=== PATIENT | female | born 1985 | race Caucasian/White ===

== ENCOUNTER → 2017-01-21 | Outpatient (CLI) | payer MEDICAID ==
[~2017-01-21] MED LIST: DCS100C PO; GLIP5TAB13 PO; HYDR-3454 PO; Ibuprofen PO; NAPR550T PO; PNT40TEC PO; PREN1TAB19 PO
== END ==
LOC: LAB 08:30
PROVIDERS: ATTEND Family Medicine
DX: Z86.32 Personal history of gestational diabetes (principal)
CPT/HCPCS: 36415; 82951; 82952; 82962

== ENCOUNTER → 2017-01-27 | Outpatient (CLI) | payer MEDICAID ==
--- NOTE | 2017-01-27 15:48 | Diagnostic Imaging Report ---
INDICATION: Evaluate anatomy. Dating. TECHNIQUE: Multiple real-time grayscale images were obtained over the gravid uterus. COMPARISON: None FINDINGS: There is a single intrauterine . The placenta is posterior. No placenta previa. Adequate amniotic fluid is seen. The cervix is 3.7 cm in length and is closed. The growth parameters are: Biparietal diameter: 16 weeks and 1 day Head circumference: 16 weeks and 6 days Abdominal circumference: 16 weeks and 2 days Femur length: 15 weeks and 6 days These average at: 16 weeks and 2 days. ROB based on the growth parameters is 07/12/2017. This is concordant with ROB by LMP of 07/11/2017. IMPRESSION: Live intrauterine . survey between 18-20 weeks is recommended. Dictated by: Dictated on workstation # [id number]
== END ==
LOC: RAD 10:03
PROVIDERS: ATTEND Family Medicine
DX: Z36 Encounter for antenatal screening of mother (principal); Z3A.16 16 weeks gestation of pregnancy
CPT/HCPCS: 76805

== ENCOUNTER → 2017-06-16 | Outpatient (CLI) | payer MEDICAID ==
--- NOTE | 2017-06-16 14:31 | Diagnostic Imaging Report ---
INDICATION: Maternal gestational diabetes. TECHNIQUE: Multiple real-time grayscale images were obtained over the gravid uterus. Fetus observed for purposes of biophysical profile assessment as well. COMPARISON: 01/27/2017 FINDINGS: There is presence of a single viable intrauterine currently in cephalic presentation. Lower limits amount of amniotic fluid with an index at 7.3 cm. Placenta posterior without evidence for previa. anatomical evaluation not performed. Biometrical measurements are as follows: Biparietal 9.0 cm, age 36 weeks 4 days. Head circumference 31.9 cm, age 36 weeks 0 days. Abdominal circumference 32.6 cm, age 36 weeks 4 days. Femur length 6.9 cm, age 35 weeks 3 days. Sonographic estimate age: 36 weeks 1 days. Sonographic estimated date of delivery: 07/13/17. Estimated Weight: 2866 gm (+/- 418 gm). LMP percentile: 49%. heart rate: 152 beats per minute. number: 1 of 1. Fetus observed for biophysical profile assessment demonstrating a normal biophysical profile scoring 8 out of 8. IMPRESSION: 1. Single viable intrauterine currently in a cephalic presentation. Sonographic estimated age 36 weeks 1 day for an estimated date of delivery 07/13/2017. Concordant with previous ultrasound dating. 2. Estimated weight currently at the 49th percentile. 3. Normal biophysical profile scoring 8 out of 8. Dictated by: Dictated on workstation # [id number]
== END ==
LOC: RAD 12:37
PROVIDERS: ATTEND Family Medicine
DX: O24.419 Gestational diabetes mellitus in pregnancy, unspecified control (principal); Z3A.36 36 weeks gestation of pregnancy
CPT/HCPCS: 76805; 76819

== ENCOUNTER 2017-06-25 17:17 | Inpatient (IN) | payer MEDICAID ==
[~2017-06-25] VITALS: Ht 152.4 cm; Wt 76.2 kg
[2017-06-25] VITALS (34 sets, daily range): BP systolic 91–135; BP diastolic 50–73
[~2017-06-25 17:17] MED LIST changes: -ACYC400T PO; -GLYB2.5T4 PO
--- OUTSIDE RECORDS SUMMARY | 2017-06-25 17:21 | XMS REPORT ---
Author Author IKE DAVIS Organization [employer] Address Unknown Phone Unavailable Care Team Providers Care Principal Technical Writer Name Role Phone IKE DAVIS CP Unavailable Allergies, Adverse Reactions, Alerts Substance Reaction Event Type N.K.D.A. Info Not Available Non Drug Allergy Problems Problem Type Condition Code Onset Dates Condition Status Problem Gestational diabetes 648.80 Active Assessment Yeast infection B37.9 Active Problem Need for rhogam due to Rh negative mother V07.2 Active Assessment Vaginal sore N89.8 Active Assessment Vaginal discharge N89.8 Active Medications Medication Code System Code Instructions Start Date End Date Status Dosage Acyclovir [facility] [place] [address]-67 400 MG Orally Three times a day January 15, 2016 1 tablet Doxycycline Monohydrate [facility] [place] [address]-80 100 MG Orally every 12 hrs January 15, 2016 Feb 05, 2016 1 capsule Procedures Procedure Coding System Code Date VENIPUNCT, ROUTINE* CPT-4 44814 January 15, 2016 Office Visit, Est Pt., Level 4 CPT-4 22520 January 15, 2016 GLYCATED HEMOGLOBIN TEST CPT-4 51948 January 15, 2016 DUNCAN VAG, DNA, DIR PROBE CPT-4 01517 January 15, 2016 URINALYSIS, AUTO, W/O SCOPE CPT-4 32822 January 15, 2016 HERPES SIMPLEX TEST CPT-4 02079 January 15, 2016 HERPES SIMPLEX TYPE 2 CPT-4 41260 January 15, 2016 URINE TEST CPT-4 29138 January 15, 2016 SPECIMEN HANDLING CPT-4 93968 January 15, 2016 TRICHOMONAS ASSAY W/OPTIC CPT-4 09416 January 15, 2016 KELLY VIRUS ISOLATE, HSV CPT-4 74700 January 15, 2016 No Charge CPT-4 11034 January 15, 2016 Vital Signs Date/Time: January 15, 2016 Cardiac Monitoring Heart Rate 84 bpm Weight 157.3 lbs Height 60 in Blood Pressure Diastolic 82 mmHg Blood Pressure Systolic 126 mmHg Results No Known Results Summary Purpose [employer] Submission
--- OUTSIDE RECORDS SUMMARY | 2017-06-25 17:21 | XMS REPORT | Continuity of Care Document ---
Author Author [facility] Address Unknown Phone Unavailable Allergies Active Description Code Type Severity Reaction Onset Reported/Identified Relationship to Patient Clinical Status Yes No Known Drug Allergies [id number] Drug Allergy Unknown N/A 07/06/2011 Medications There is no data. Problems Date Dx Coded Attending Type Code Diagnosis Diagnosed By 07/06/2011 Ot 836.2 TEAR MENISCUS NEC-CURREN 07/06/2011 Ot 959.7 LOWER LEG INJURY NOS 07/06/2011 Ot E000.8 OTHER EXTERNAL CAUSE STATUS 07/06/2011 Ot E849.0 ACCIDENT IN HOME 07/06/2011 Ot E927.0 OVEREXERTION FROM SUDDEN STRENUOUS MOVEM 12/08/2013 KATTY JONESNEFTALY Rodriguez A V06.1 TDAP DX 12/08/2013 KATTY JONESMichael NEFTALY A V22.1 , NORMAL OTHER 12/08/2013 KATTY TALENT MANAGER, NEFTALY A V74.5 STD SCREEN 12/08/2013 KATTY TALENT MANAGER, NEFTALY A V76.2 CERVICAL CANCER SCREENING (PAP SMEAR) 12/08/2013 KATTY TALENT MANAGER, NEFTALY A V77.1 DIABETES SCREENING 12/08/2013 KATTY TALENT MANAGER, NEFTALY A V78.0 ANEMIA SCREENING 12/08/2013 KATTY TALENT MANAGER, NEFTALY A V06.1 TDAP DX 12/08/2013 KATTY TALENT MANAGER, NEFTALY A V22.1 , NORMAL OTHER 12/08/2013 KATTY TALENT MANAGER, NEFTALY A V74.5 STD SCREEN 12/08/2013 KATTY TALENT MANAGER, NEFTALY A V76.2 CERVICAL CANCER SCREENING (PAP SMEAR) 12/08/2013 KATTYMichael LABOY NEFTALY A V77.1 DIABETES SCREENING 12/08/2013 KATTYMichael LABOY NEFTALY A V78.0 ANEMIA SCREENING 12/08/2013 KOMAL MUNIZ DO V06.1 TDAP DX 12/08/2013 MUNIZ DO, KOMAL K V22.1 , NORMAL OTHER 12/08/2013 MUNIZ DO, KOMAL K V74.5 STD SCREEN 12/08/2013 MUNIZ DO, KOMAL K V76.2 CERVICAL CANCER SCREENING (PAP SMEAR) 12/08/2013 MUNIZ DO, KOMAL K V77.1 DIABETES SCREENING 12/08/2013 MUNIZ DO, KOMAL K V78.0 ANEMIA SCREENING 12/08/2013 MUNIZ DO, KOMAL K V06.1 TDAP DX 12/08/2013 MUNIZ DO, KOMAL K V22.1 , NORMAL OTHER 12/08/2013 MUNIZ DO, KOMAL K V74.5 STD SCREEN 12/08/2013 MUNIZ DO, KOMAL K V76.2 CERVICAL CANCER SCREENING (PAP SMEAR) 12/08/2013 MUNIZ DO, KOMAL K V77.1 DIABETES SCREENING 12/08/2013 MUNIZ DO, KOMAL K V78.0 ANEMIA SCREENING 12/08/2013 MUNIZ DO, KOMAL K V06.1 TDAP DX 12/08/2013 MUNIZ DO, KOMAL K V22.1 , NORMAL OTHER 12/08/2013 MUNIZ DO, KOMAL K V74.5 STD SCREEN 12/08/2013 MUNIZ DO, KOMAL K V76.2 CERVICAL CANCER SCREENING (PAP SMEAR) 12/08/2013 FLAVIO GALLEGOS KOMAL K V77.1 DIABETES SCREENING 12/08/2013 MUNIZ DO, KOMAL K V78.0 ANEMIA SCREENING 12/08/2013 KERRY CHAVEZ MD V06.1 TDAP DX 12/08/2013 KERRY CHAVEZ MD V22.1 , NORMAL OTHER 12/08/2013 KERRY CHAVEZ MD V74.5 STD SCREEN 12/08/2013 KERRY CHAVEZ MD V76.2 CERVICAL CANCER SCREENING (PAP SMEAR) 12/08/2013 KERRY CHAVEZ MD V77.1 DIABETES SCREENING 12/08/2013 KERRY CHAVEZ MD V78.0 ANEMIA SCREENING 12/08/2013 MUNIZ DO, KOMAL K V06.1 TDAP DX 12/08/2013 MUNIZ DO, KOMAL K V22.1 , NORMAL OTHER 12/08/2013 MUNIZ DO, KOMAL K V74.5 STD SCREEN 12/08/2013 MUNIZ DO KOMAL K V76.2 CERVICAL CANCER SCREENING (PAP SMEAR) 12/08/2013 MUNIZ KOMAL GALLEGOS V77.1 DIABETES SCREENING 12/08/2013 MUNIZ KOMAL GALLEGOS V78.0 ANEMIA SCREENING 12/08/2013 KERRY CHAVEZ MD V06.1 TDAP DX 12/08/2013 KERRY CHAVEZ MD V22.1 , NORMAL OTHER 12/08/2013 KERRY CHAVEZ MD V74.5 STD SCREEN 12/08/2013 KERRY CHAVEZ MD V76.2 CERVICAL CANCER SCREENING (PAP SMEAR) 12/08/2013 KERRY CHAVEZ MD V77.1 DIABETES SCREENING 12/08/2013 KERRY CHAVEZ MD V78.0 ANEMIA SCREENING 12/08/2013 KOMAL MUNIZ DO V06.1 TDAP DX 12/08/2013 KOMAL MUNIZ DO V22.1 , NORMAL OTHER 12/08/2013 KOMAL MUNIZ DO V74.5 STD SCREEN 12/08/2013 KOMAL MUNIZ DO V76.2 CERVICAL CANCER SCREENING (PAP SMEAR) 12/08/2013 KOMAL MUNIZ DO K V77.1 DIABETES SCREENING 12/08/2013 MUNIZ KOMAL GALLEGOS K V78.0 ANEMIA SCREENING 12/08/2013 NEFTALY ALANIZ APRN A V06.1 TDAP DX 12/08/2013 NEFTALY ALANIZ APRN A V22.1 , NORMAL OTHER 12/08/2013 KATTY APRN, NEFTALY A V74.5 STD SCREEN 12/08/2013 KATTYMichael LABOY NEFTALY A V76.2 CERVICAL CANCER SCREENING (PAP SMEAR) 12/08/2013 KATTYMichael LABOY NEFTALY A V77.1 DIABETES SCREENING 12/08/2013 KATTYMichael LABOY NEFTALY A V78.0 ANEMIA SCREENING 12/08/2013 MITZY TALENT MANAGER, BOGDAN R V06.1 TDAP DX 12/08/2013 MITZY TALENT MANAGER, BOGDAN R V22.1 , NORMAL OTHER 12/08/2013 MITZY TALENT MANAGER, BOGDAN R V74.5 STD SCREEN 12/08/2013 MITZY TALENT MANAGER, BOGDAN R V76.2 CERVICAL CANCER SCREENING (PAP SMEAR) 12/08/2013 MITZY LABOY BOGDAN R V77.1 DIABETES SCREENING 12/08/2013 WILMAR FORRESTER APRNINA R V78.0 ANEMIA SCREENING 12/19/2013 KATTY LABOY, NEFTALY A 648.00 GESTATIONAL DIABETES 12/19/2013 FLAVIO GALLEGOS KOMAL K 648.00 GESTATIONAL DIABETES 12/19/2013 MUNIZ DO, KOMAL K 648.00 GESTATIONAL DIABETES 12/19/2013 MUNIZ , KOMAL K 648.00 GESTATIONAL DIABETES 12/19/2013 KERRY CHAVEZ MD N 648.00 GESTATIONAL DIABETES 12/19/2013 MUNIZ DO KOMAL K 648.00 GESTATIONAL DIABETES 12/19/2013 KERRY CHAVEZ MD N 648.00 GESTATIONAL DIABETES 12/19/2013 MUNIZ , KOMAL K 648.00 GESTATIONAL DIABETES 12/19/2013 NEFTALY ALANIZ APRN A 648.00 GESTATIONAL DIABETES 12/19/2013 WILMAR FORRESTER APRNINA R 648.00 GESTATIONAL DIABETES 12/27/2013 MUNIZ DO KOMAL K 649.60 UTERINE SIZE DATE DISCREPANCY - LGA 12/27/2013 FLAVIO GALLEGOS KOMAL K 649.60 UTERINE SIZE DATE DISCREPANCY - LGA 12/27/2013 MUNIZ DO KOMAL K 649.60 UTERINE SIZE DATE DISCREPANCY - LGA 12/27/2013 KERRY CHAVEZ MD N 649.60 UTERINE SIZE DATE DISCREPANCY - LGA 12/27/2013 MUNIZ DO KOMAL K 649.60 UTERINE SIZE DATE DISCREPANCY - LGA 12/27/2013 KERRY CHAVEZ MD N 649.60 UTERINE SIZE DATE DISCREPANCY - LGA 12/27/2013 FLAVIO GALLEGOS KOMAL K 649.60 UTERINE SIZE DATE DISCREPANCY - LGA 12/27/2013 KATTYLIGIA Rodriguez APRNIDI A 649.60 UTERINE SIZE DATE DISCREPANCY - LGA 12/27/2013 WILMAR FORRESTER APRNINA R 649.60 UTERINE SIZE DATE DISCREPANCY - LGA 01/02/2014 FLAVIO GALLEGOS KOMAL K 658.00 OLIGOHYDRAMNIOS 01/02/2014 FLAVIO GALLEGOS KOMAL K V23.9 , HIGH-RISK (UNSPEC) 01/02/2014 MUNIZ DO KOMAL K 658.00 OLIGOHYDRAMNIOS 01/02/2014 MUNIZ DO KOMAL K V23.9 , HIGH-RISK (UNSPEC) 01/02/2014 KERRY CHAVEZ MD N 658.00 OLIGOHYDRAMNIOS 01/02/2014 KERRY CHAVEZ MD V23.9 , HIGH-RISK (UNSPEC) 01/02/2014 KOMAL MUNIZ DO 658.00 OLIGOHYDRAMNIOS 01/02/2014 KOMAL MUNIZ DO V23.9 , HIGH-RISK (UNSPEC) 01/02/2014 KERRY CHAVEZ MD N 658.00 OLIGOHYDRAMNIOS 01/02/2014 KERRY CHAVEZ MD V23.9 , HIGH-RISK (UNSPEC) 01/02/2014 KOMAL MUNIZ DO 658.00 OLIGOHYDRAMNIOS 01/02/2014 KOMAL MUNIZ DO V23.9 , HIGH-RISK (UNSPEC) 01/02/2014 NEFTALY ALANIZ APRN 658.00 OLIGOHYDRAMNIOS 01/02/2014 NEFTALY ALANIZ APRN V23.9 , HIGH-RISK (UNSPEC) 01/02/2014 BOGDAN FORRESTER APRN 658.00 OLIGOHYDRAMNIOS 01/02/2014 BOGDAN FORRESTER APRN V23.9 , HIGH-RISK (UNSPEC) 01/28/2014 KOMAL MUNIZ DO Ot 648.81 ABN GLUCOSE CHAVA-DELIV 01/28/2014 KOMAL MUNIZ DO Ot 660.41 SHOULDER DYSTOCIA-DELIV 01/28/2014 KOMAL MUNIZ DO Ot 664.11 DEL W 2 DEG LACERAT-DEL 01/28/2014 KOMAL MUNIZ DO Ot V06.4 LDY-OTVBYH-YIFTE-RUBELLA 01/28/2014 KOMAL MUNIZ DO Ot V07.2 PROPHYLACT IMMUNOTHERAPY 01/28/2014 KOMAL MUNIZ DO Ot V27.0 DELIVER-SINGLE LIVEBORN 03/03/2014 MUNOZ ALVERTO GALLEGOS Ot 574.10 CHOLELITH W CHOLECYS NEC 03/09/2014 NEFTALY ALANIZ APRN V24.2 F/U, ROUTINE 03/09/2014 BOGDAN FORRESTER APRN R V24.2 F/U, ROUTINE 03/30/2014 BOGDAN FORRESTER APRN 790.29 OTHER ABNORMAL GLUCOSE 04/05/2014 KOMAL MUNIZ DO Ot 648.03 DIABETES-ANTEPARTUM 04/05/2014 KOMAL MUNIZ DO Ot 658.03 OLIGOHYDRAMNIOS-ANTEPAR 04/05/2014 KOMAL MUNIZ DO Ot V23.9 SUPRV HIGH-RISK PREG NOS 06/27/2014 CALLAO ALVERTO GALLEGOS Ot 574.20 06/27/2014 ALVERTO MUNOZ DO Ot V64.3 12/10/2015 HANNA RODRIGUEZ MD Ot H83.09 LABYRINTHITIS, UNSPECIFIED EAR 12/10/2015 HANNA RODRIGUEZ MD Ot R42 DIZZINESS AND GIDDINESS 12/10/2015 NEFTALY ALANIZ APRN Ot V22.1 SUPERVIS OTH NORMAL PREG 12/10/2015 NEFTALY ALANIZ APRN Ot V77.1 SCREEN-DIABETES MELLITUS 12/10/2015 KOMAL MUNIZ DO Ot 648.83 ABN GLUCOSE-ANTEPARTUM 12/10/2015 KOMAL MUNIZ DO Ot 656.63 EXCESS FET GRTH-ANTEPART 12/10/2015 KOMAL MUNIZ DO Ot 658.03 OLIGOHYDRAMNIOS-ANTEPAR 12/10/2015 MUNOZ ALVERTO GALLEGOS Ot 574.20 CHOLELITHIASIS NOS 12/10/2015 MUNOZ ALVERTO GALLEGOS Ot V72.63 PRE-PROCEDURAL LABORATORY EXAMINATION 12/10/2015 MUNOZ ALVERTO GALLEGOS Ot V74.8 SCREEN-BACTERIAL DIS NEC 12/10/2015 MUNOZ ALVERTO GALLEGOS Ot 574.20 CHOLELITHIASIS NOS 12/10/2015 MUNOZ ALVERTO GALLEGOS Ot V64.3 NO PROC FOR REASONS NEC 12/10/2015 NEFTALY ALANIZ APRN Ot 648.80 ABN GLUCOSE IN PREG-UNSP 12/10/2015 Ot 648.03 DIABETES- ANTEPARTUM 12/10/2015 Ot 658.03 OLIGOHYDRAMNIOS-ANTEPAR 12/10/2015 Ot V23.9 SUPRV HIGH- RISK PREG NOS 12/12/2015 JENNIFER LEGGETT, HANNA Huitron Ot H83.09 LABYRINTHITIS, UNSPECIFIED EAR 12/12/2015 JENNIFER LEGGETT, HANNA Huitron Ot R42 DIZZINESS AND GIDDINESS 12/15/2015 HANNA RODRIGUEZ MD Ot H83.09 LABYRINTHITIS, UNSPECIFIED EAR 12/15/2015 HANNA RODRIGUEZ MD Ot R42 DIZZINESS AND GIDDINESS 01/01/2016 NEFTALY ALANIZ TALENT MANAGER Ot V22.1 SUPERVIS OTH NORMAL PREG 01/01/2016 NEFTALY ALANIZ BENOIT Ot V77.1 SCREEN-DIABETES MELLITUS 01/01/2016 FLAVIO GALLEGOS KOMLA Jeffrey Ot 648.83 ABN GLUCOSE-ANTEPARTUM 01/01/2016 FLAVIO GALLEGOS KOMAL Jeffrey Ot 656.63 EXCESS FET GRTH-ANTEPART 01/01/2016 FLAVIO GALLEGOS KOMAL Jeffrey Ot 658.03 OLIGOHYDRAMNIOS-ANTEPAR 01/01/2016 MUNOZ ALVERTO GALLEGOS Ot 574.20 CHOLELITHIASIS NOS 01/01/2016 MUNOZ ALVERTO GALLEGOS Ot V72.63 PRE-PROCEDURAL LABORATORY EXAMINATION 01/01/2016 MUNOZ ALVERTO GALLEGOS Ot V74.8 SCREEN-BACTERIAL DIS NEC 01/01/2016 CALLAO ALVERTO GALLEGOS Ot 574.20 CHOLELITHIASIS NOS 01/01/2016 CALLAO ALVERTO GALLEGOS Ot V64.3 NO PROC FOR REASONS NEC 01/01/2016 LIGIA ALANIZIDI Elana BENOIT Ot 648.80 ABN GLUCOSE IN PREG-UNSP 01/01/2016 Ot 648.03 DIABETES- ANTEPARTUM 01/01/2016 Ot 658.03 OLIGOHYDRAMNIOS-ANTEPAR 01/01/2016 Ot V23.9 SUPRV HIGH- RISK PREG NOS 01/28/2017 KERRY CHAVEZ MD, Ot Z86.32 PERSONAL HISTORY OF GESTATIONAL DIABETES 01/28/2017 KERRY CHAVEZ MD Ot Z36 ENCOUNTER FOR SCREENING OF MOT 01/28/2017 KERRY CHAVEZ MD, Ot Z3A.16 16 WEEKS GESTATION OF 02/06/2017 KERRY CHAVEZ MD, Ot Z86.32 PERSONAL HISTORY OF GESTATIONAL DIABETES 02/12/2017 KERRY CHAVEZ MD Ot Z36 ENCOUNTER FOR SCREENING OF MOT 02/12/2017 KERRY CHAVEZ MD, Ot Z3A.16 16 WEEKS GESTATION OF Procedures Code Description [place] [address] ROUTINE VENIPUNCTURE 12/08/2013 76232 GLUCOSE BORIS 3 HOUR 12/08/2013 00291 SYPHILLIS-STATE [facility] 12/08/2013 65139 HIV (STATE LAB) 12/08/2013 70267 HEP B SURFACE ANTIGEN (STATE ) 12/08/2013 31061 GC/CHLAM PROBE (STATE) 12/08/2013 Q0091 PAP SMEAR OBTAIN SMEAR 12/08/2013 86667 UA OB DIP 12/08/2013 22070 TRICHOMONAS (IN-HOUSE) 12/08/2013 00669 CBC 12/08/2013 42577 GLUCOSE BORIS 1 HOUR 12/08/2013 81322 TSH 12/08/2013 86937 RUBELLA ANTIBODY, IGG 12/09/2013 41582 CULTURE URINE 12/09/2013 37009 CULTURE UROGENITAL 12/11/2013 31495 PAP SMEAR 12/13/2013 61835 US OB - COMPLETE >14 WEEKS 12/27/2013 31818 UA OB DIP 12/27/2013 23536 NON-STRESS TEST 01/02/2014 85528 UA OB DIP 01/02/2014 85341 BIOPHYSICAL PROFILE () W/NST 01/03/2014 92055 CULTURE GROUP B STREP VAG 01/03/2014 58046 NON-STRESS TEST 01/09/2014 41171 UA OB DIP 01/09/2014 07526 UA OB DIP 01/17/2014 55987 NON-STRESS TEST 01/17/2014 64406 NON-STRESS TEST 01/23/2014 53850 UA OB DIP 01/23/2014 75.69 01/26/2014 52970 GLUCOSE BORIS 2 HOUR 03/09/2014 Results Test Result Range Serum or plasma glucose measurement 3 hours post challenge (mass/volume) - 08:50 Serum or plasma glucose measurement 3 hours post challenge (mass/volume) NRG Capillary blood glucose measurement by glucometer (mass/volume) - 01/21/17 08: 52 Capillary blood glucose measurement by glucometer (mass/volume) 97 mg/dL 70-110 Encounters ACCT No. Visit Date/Time Discharge Status Pt. Type Provider Facility Loc./Unit Complaint [id number] 03/30/2014 09:21:00 03/30/2014 23:59:59 CLS Outpatient BOGDAN FORRESTER APRN [id number] 03/09/2014 09:48:00 03/09/2014 23:59:59 CLS Outpatient NEFTALY ALANIZ APRN [id number] 01/23/2014 14:52:00 01/23/2014 23:59:59 CLS Outpatient KOMAL MUNIZ DO [id number] 01/23/2014 14:52:00 01/23/2014 23:59:59 CLS Outpatient KOMAL MUNIZ DO Jeffrey [id number] 01/17/2014 15:16:00 01/17/2014 23:59:59 CLS Outpatient KERRY CHAVEZ MD [id number] 01/17/2014 15:16:00 01/17/2014 23:59:59 CLS Outpatient KERRY CHAVEZ MD [id number] 01/09/2014 14:49:00 01/09/2014 23:59:59 CLS Outpatient KOMAL MUNIZ DO Jeffrey [id number] 01/02/2014 15:06:00 01/02/2014 23:59:59 CLS Outpatient FLAVIO GALLEGOS KOMAL Jeffrey [id number] 12/27/2013 14:04:00 12/27/2013 23:59:59 CLS Outpatient FLAVIO GALLEGOS KOMAL Jeffrey [id number] 12/08/2013 12:52:00 12/08/2013 23:59:59 CLS Outpatient NEFTALY ALANIZ APRN [id number] 12/08/2013 12:52:00 12/08/2013 23:59:59 CLS Outpatient NEFTALY ALANIZ APRN [id number] 06/18/2017 07:44:00 06/18/2017 23:59:59 CLS Preadmit KERRY CHAVEZ MD [facility] RAD GESTATIONAL DIABETES [id number] 06/16/2017 12:37:00 06/16/2017 23:59:59 CLS Outpatient KERRY CHAVEZ MD [facility] RAD [id number] GEST DIABETES [id number] 01/27/2017 10:03:00 01/27/2017 23:59:59 CLS Outpatient KERRY CHAVEZ MD [facility] RAD DATING Z34.92 [id number] 01/21/2017 08:30:00 01/21/2017 23:59:59 CLS Outpatient KERRY CHAVEZ MD [facility] LAB N86.32 [id number] 12/09/2015 23:06:00 12/10/2015 01:50:00 DIS Emergency HANNA RODRIGUEZ MD [facility] ER [id number] 01/19/2014 11:00:00 04/05/2014 00:01:00 DIS Outpatient KOMAL MUNIZ DO [facility] RAD [id number] 03/14/2014 10:25:00 03/14/2014 23:59:59 CLS Outpatient NEFTALY ALANIZ TALENT MANAGER [facility] LAB [id number] 03/03/2014 09:11:00 03/03/2014 23:59:59 CLS Outpatient MUNOZ DO, ALVERTO D [facility] [id number] 03/03/2014 08:17:00 03/03/2014 13:50:00 DIS Outpatient MUNOZ DO, ALVERTO D [facility] [id number] 02/24/2014 09:09:00 02/24/2014 23:59:59 CLS Outpatient MUNOZ DO, ALVERTO D [facility] PREOP [id number] 01/25/2014 16:45:00 01/28/2014 14:45:00 DIS Inpatient KOMAL MUNIZ DO [facility] [id number] 01/02/2014 13:38:00 01/02/2014 23:59:59 CLS Outpatient KOMAL MUNIZ DO [facility] RAD [id number] 12/14/2013 09:19:00 12/14/2013 23:59:59 CLS Outpatient NEFTALY ALANIZ TALENT MANAGER [facility] LAB [id number] 04/06/2014 11:00:00 Document Registration [id number] 07/06/2011 14:50:00 Document Registration
--- OUTSIDE RECORDS SUMMARY | 2017-06-25 17:21 | XMS REPORT ---
Author Author IKE DAVIS Organization [employer] Address Unknown Phone Unavailable Care Team Providers Care Fisher Line Name Role Phone IKE DAVIS CP Unavailable Allergies No Known Allergies Problems Problem Type Condition Code Onset Dates Condition Status Problem Gestational diabetes 648.80 Active Problem Need for rhogam due to Rh negative mother V07.2 Active Medications No Known Medications Results No Known Results Summary Purpose [employer] Submission
[2017-06-25] MEDS ORDERED: OXYTOCIN/NORMAL SALINE 500 ML IV SCH (17:46)
[2017-06-25] MEDS ORDERED: LACTATED RINGERS 1,000 ML IV ONE ×2 (17:49→22:21)
[2017-06-25] MEDS: LACTATED RINGERS 1,000 ML IV SCH (18:18)
[2017-06-25 18:24] LABS: BASOPHILS % (AUTO) 0 % (0-10); EOSINOPHILS # (AUTO) 0.1 10^3/uL (0.0-0.3); EOSINOPHILS % (AUTO) 1 % (0-10); LYMPHOCYTES % (AUTO) 16 % (12-44); MEAN CORPUSCULAR HEMOGLOBIN 26 PG (25-34); MEAN CORPUSCULAR HGB CONC 33 G/DL (32-36); MEAN CORPUSCULAR VOLUME 79 FL (80-99); MEAN PLATELET VOLUME 10.7 FL (7.4-10.4); MONOCYTES % (AUTO) 8 % (0-12); NEUTROPHILS # (AUTO) 9.2 X 10^3 (1.8-7.8); NEUTROPHILS % (AUTO) 75 % (42-75); PLATELET COUNT 250 10^3/uL (130-400); RED BLOOD COUNT 4.44 10^6/uL (4.35-5.85); WHITE BLOOD COUNT 12.4 10^3/uL (4.3-11.0)
[2017-06-25] MEDS ORDERED: ACYC400T PO (18:37)
[2017-06-25] MEDS ORDERED: GLYB2.5T4 PO (18:37)
[2017-06-25] MEDS ORDERED: ACETAMINOPHEN 500 MG TAB (TYLENOL) ONE (20:19)
--- NOTE | 2017-06-25 20:31 | History & Physical-OB ---
OB - Chief Complaint & HPI Date/Time Date of Admission: Date of Admission: Jun 25, 2017 at 5:17 pm Time Seen by Provider: 20:15 Chief Complaint/History OB-Reason for Admission/Chief: Medical Complication (suboptimal control of GDMA2) Hx : 4 Hx Para: 2011 Expected Date of Delivery: Jul 11, 2017 Gestational Age in Weeks: 37 Gestational Age in Days: 5 Indication for induction: medical complication Other reason for admission: 32 yo at 37w5d with GDMA2 on glyburide with suboptimal control over the last week- 2/5 fasting above 95 and 4/13 postprandial above 120 in spite of increased dose of glyburide. Additionally, BPP today showed decreasing TRUE from 7.3 last week to 5.7 today. History of Labs A negative, RI, HIV/hepB/RPR NR. GC/chlamydia neg. GBS neg. Allergies and Home Medications Allergies Coded Allergies: No Known Drug Allergies (Unverified , 07/06/11) Home Medications Acyclovir 400 Mg Tablet, MG PO TID, (Reported) Glyburide 2.5 Mg Tablet, 2.5 MG PO DAILY, (Reported) OB - History Hx of Present Care: Yes (part of care in [facility] until 34w4d) Ultrasounds: Normal mid trimester US Obstetrical Complications: Gestational Diabetes Information Induced Hypertension: No Maternal Gestational Diabetes: Yes Hemorrhage: No Obstetrical History Hx : 4 Hx Para: 2 Hx # Term Pregnancies: 2 Hx # Pregnancies: 0 Number of Living Children: 1 Hx Total # of Abortions (Spona: 1 Hx Multiple Gestation: No Hx Ectopic : No Hx Stillbirth: No Hx Complication: No Hx Induced Hypertens: No Hx Maternal Gestational Diabet: Yes (with this ) Hx Hemorrhage: No Delivery History Hx Dystocia: No Hx Forceps Assisted Delivery: No Hx Vacuum Extraction Assisted: No Hx Placenta Abnormality: No Hx Distress: No Hx Large For Gestational Age I: No Hx Small for Gestational Age I: No Hx Section: No Hx Vaginal Delivery Post C-Sec: No Hx Blood Disorders: No Adverse Rxn to Tranfusion: No Patient Past Medical History PMHx: GDM PSurgHx: Cholecystectomy ACL repair Social History/Family History HIV/AIDS: No Recent Infectious Disease Expo: No Sexually Transmitted Disease: Yes (herpes) Alcohol Use: Denies Use Recreational Drug Use: No Smoking Cessation: Never smoker Immunizations Hepatitis A: No Hepatitis B: No Tetanus Booster (TDap): Less than 5yrs Rubella: immune RPR/VDRL: Negative GBS Status: Negative HBsAG: Negative OB - Admission Exam Physical Exam Vitals: Vital Signs 06/25/17 06/25/17 06/25/17 17:40 18:45 19:00 Temp 97.1 Pulse 95 Resp 18 B/P (MAP) 113/67 (82) Pulse Ox 100 O2 Delivery Room Air HEENT: NCAT Abdomen: Gravid Extremities: Normal Cervical Dilatation: 3cm Effacement: 0% Station: -3 Membranes: Intact Heart Rate: 140's Accelerations: Accelerations Present Decelerations: No Decelerations Short Term Variability: Present [employer] Variability: Average (6-25) Contractions on Admission: < 5 Minutes Apart Intensity: Mild White Scoring Tool (Modified) Dilation (cm): 3-4cm (2) Effacement (%): 0-30% (0) Descent/Station: -3 (0) Cervix Consistency: Soft (2) Cervix Position: Anterior (2) Add 1 point for: Each previous vaginal delivery (1) (2) White Score: 8 Labs Laboratory Tests Test 06/25/17 18:00 06/25/17 18:55 Range/Units White Blood Count 12.4 H 4.3-11.0 10^3/uL Red Blood Count 4.44 4.35-5.85 10^6/uL Hemoglobin 11.6 11.5-16.0 G/DL Hematocrit 35 35-52 % Mean Corpuscular Volume 79 L 80-99 FL Mean Corpuscular Hemoglobin 26 25-34 PG Mean Corpuscular Hemoglobin Concent 33 32-36 G/DL Red Cell Distribution Width 15.0 H 10.0-14.5 % Platelet Count 250 130-400 10^3/uL Mean Platelet Volume 10.7 H 7.4-10.4 FL Neutrophils (%) (Auto) 75 42-75 % Lymphocytes (%) (Auto) 16 12-44 % Monocytes (%) (Auto) 8 0-12 % Eosinophils (%) (Auto) 1 0-10 % Basophils (%) (Auto) 0 0-10 % Neutrophils # (Auto) 9.2 H 1.8-7.8 X 10^3 Lymphocytes # (Auto) 2.0 1.0-4.0 X 10^3 Monocytes # (Auto) 1.0 0.0-1.0 X 10^3 Eosinophils # (Auto) 0.1 0.0-0.3 10^3/uL Basophils # (Auto) 0.0 0.0-0.1 10^3/uL Glucometer 65 L 70-110 MG/DL OB - Assessment/Plan/Diagnosis Assessment Assessment: induction of labor, other (GDMA2, borderline oligohydramnios, history of HSV) Plan Plan: Induction Induction Method: per Pitocin Protocol Other Plan FSBG every 2 hours, initial 65 with no medication today Complete internal and external vaginal exam with clear speculum done in clinic earlier today due to history of HSV (on suppressive acyclovir) and no lesions seen Copy Copies To 1: KERRY CHAVEZ MD, BETHANY N MD Jun 25, 2017 8:31 pm
[2017-06-25] MEDS ORDERED: SUFENTA 0.6MCG/ML BUPIVA 0.125 100 ML ONE (21:03)
[2017-06-25] MEDS ORDERED: fentaNYL INJECTION 100 MCG/2 ML AMP ONE (22:00)
[2017-06-25] MEDS: CATHETER FLUSH 10 ML SYR IV SCH (22:00)
[2017-06-25] MEDS ORDERED: diphenhydrAMINE 50 MG/ML INJ (BENADRYL) IV PRN (22:30)
[2017-06-25] MEDS ORDERED: EPIDURAL (SUFENTA 0.6MCG/ML BUPIVA 0.125%) 100 ML BAG EPI PRN (22:30)
[2017-06-25] MEDS ORDERED: NALOXONE 0.4 MG/ML 1 ML (NARCAN) VIAL IV PRN ×2 (22:30)
[2017-06-25] MEDS ORDERED: ONDANSETRON 4 MG/2 ML (SDV) Z0FRAN IV PRN (22:30)
[2017-06-25] MEDS ORDERED: METOCLOPRAMIDE INJ 10 MG/2 ML (REGLAN) IV PRN (22:30)
[2017-06-26] VITALS (60 sets, daily range): BP systolic 90–142; BP diastolic 47–72
[2017-06-26] MEDS: LACTATED RINGERS 1,000 ML IV SCH ×3 (01:08→11:55)
--- NOTE | 2017-06-26 06:52 | Labor Progress Note ---
Labor Progress Note Labor Progress Note Date Seen by Provider: Jun 26, 2017 Time Seen by Provider: 06:30 Subjective: Pt denies complaints. Objective: (Can we insert 24 hour vitals here?) Cervical exam: /-3 Consistency: Soft Position: Anterior Presentation: Vertex heart tones: 140 beats per minute, moderate variability, reactive Tocometer: 2-3 ctx/10 minutes Assessment/Plan: Elaina Garber is a (32 /Para 4 / 2,Gestational Age (wks)37 here for IOL for oligohydramnios and GDMA2 with suboptimal control. AROM done with clear fluid FSE/TOCO Continue pitocin Anesthesia: epidural Anticipate vaginal delivery. Vitals - Labs Vital Signs - I&O Vital Signs 06/25/17 06/26/17 06/26/17 22:25 04:25 05:40 Temp 98.8 Pulse 101 Resp 18 B/P (MAP) 104/61 (75) Pulse Ox 100 O2 Delivery Room Air Labs Laboratory Tests 06/25/17 18:00: White Blood Count 12.4H, Red Blood Count 4.44, Hemoglobin 11.6, Hematocrit 35, Mean Corpuscular Volume 79L, Mean Corpuscular Hemoglobin 26, Mean Corpuscular Hemoglobin Concent 33, Red Cell Distribution Width 15.0H, Platelet Count 250, Mean Platelet Volume 10.7H, Neutrophils (%) (Auto) 75, Lymphocytes (%) (Auto) 16 , Monocytes (%) (Auto) 8, Eosinophils (%) (Auto) 1, Basophils (%) (Auto) 0, Neutrophils # (Auto) 9.2H, Lymphocytes # (Auto) 2.0, Monocytes # (Auto) 1.0, Eosinophils # (Auto) 0.1, Basophils # (Auto) 0.0 06/25/17 18:55: Glucometer 65L 06/25/17 20:56: Glucometer 76 06/25/17 22:43: Glucometer 120H 06/26/17 01:10: Glucometer 97 06/26/17 04:12: Glucometer 97 KERRY CHAVEZ MD Jun 26, 2017 6:51 am
[2017-06-26] MEDS: CATHETER FLUSH 10 ML SYR IV SCH (07:31)
[2017-06-26] MEDS ORDERED: INFLUENZA TRIvalent 2017-2018 0.5 ML/45 MCG SYR IM ONE (08:30)
[2017-06-26] MEDS ORDERED: ACETAMINOPHEN 500 MG TAB (TYLENOL) PO PRN (09:00)
[2017-06-26] MEDS ORDERED: LIDOCAINE/EPI 2% 1:200,00 (XYLOCAINE) 10 ML VIAL ONE (12:18)
[2017-06-26] MEDS ORDERED: MISOPROSTOL 200 MCG (CYTOTEC) TABLET ONE (12:18)
[2017-06-26] MEDS ORDERED: METHYLERGONOVINE 0.2 MG/ML (METHERGINE) AMP ONE (12:35)
--- NOTE | 2017-06-26 13:00 | OB Labor & Delivery Record ---
Vag Delivery Note Vag Delivery Note Date of Delivery: 06/26/17 Preoperative Diagnosis: Elaina Garber is a (32 /Para 4 / 2, Gestational Age (wks)37with [] Postoperative Diagnosis: Same Surgeon: KERRY CHAVEZ Anesthesia: Epidural Delivery Type: Spontaneous vaginal delivery Findings: Viable male infant, apgars 7/9, weight 7#1 Lacerations: second degree perineal, right labial Intact placenta with 3 vessel cord. No nuchal cord, body cord or shoulder dystocia Cytotec 800 mcg placed for hemorrhage prophylaxis, continued moderate bleeding with fundal pressure so methergine Estimated Blood Loss: 400 ml Complications: None Condition: Stable Description of Procedure: The patient is a 32 yo G4 now P3013 who presented for IOL at 37w5d for uncontrolled GDMA2 and oligohydramnios. She was admitted and informed consent was obtained. Her labor course was unremarkable. She progressed to complete dilatation and began to push. She was then set up for delivery. The 's head was delivered atraumatically in the SACHA position. The shoulders and remainder of the infant's body were then delivered without difficulty. Upon delivery, the head was held below the level of the perineum and the mouth and nares were bulb suctioned. The cord was doubly clamped and cut and the was handed off to the pediatric staff. An intact placenta with 3-vessel cord delivered via Laura and there was found to be minimal bleeding.~ Vigorous fundal massage was performed and the fundus was found to be firm. IV oxytocin was given. Examination of the vagina and perineum revealed a second degree perineal laceration repaired in the usual fashion with 3-0 rapide suture and right labial laceration repaired with subcutaneous running suture. Following the repair, sponge, instrument and needle counts were correct. Mom and baby were both in stable condition in the labor suite. Vitals - Labs Vital Signs - I&O Vital Signs 06/25/17 06/26/17 06/26/17 22:25 04:25 09:00 Temp 98.8 Pulse 109 Resp 18 B/P (MAP) 111/63 (79) Pulse Ox 100 O2 Delivery Room Air Labs Laboratory Tests 06/25/17 18:00: White Blood Count 12.4H, Red Blood Count 4.44, Hemoglobin 11.6, Hematocrit 35, Mean Corpuscular Volume 79L, Mean Corpuscular Hemoglobin 26, Mean Corpuscular Hemoglobin Concent 33, Red Cell Distribution Width 15.0H, Platelet Count 250, Mean Platelet Volume 10.7H, Neutrophils (%) (Auto) 75, Lymphocytes (%) (Auto) 16 , Monocytes (%) (Auto) 8, Eosinophils (%) (Auto) 1, Basophils (%) (Auto) 0, Neutrophils # (Auto) 9.2H, Lymphocytes # (Auto) 2.0, Monocytes # (Auto) 1.0, Eosinophils # (Auto) 0.1, Basophils # (Auto) 0.0 06/25/17 18:55: Glucometer 65L 06/25/17 20:56: Glucometer 76 06/25/17 22:43: Glucometer 120H 06/26/17 01:10: Glucometer 97 06/26/17 04:12: Glucometer 97 06/26/17 06:46: Glucometer 84 06/26/17 09:54: Glucometer 81 KERRY CHAVEZ MD Jun 26, 2017 1:00 pm
[2017-06-26] MEDS ORDERED: MISOPROSTOL 100 MCG (CYTOTEC) TAB PR ONE (13:15)
[2017-06-26] MEDS ORDERED: METHYLERGONOVINE 0.2 MG/ML (METHERGINE) AMP IM ONE (13:15)
[2017-06-26] MEDS ORDERED: OXYTOCIN/NORMAL SALINE 500 ML IV SCH (15:06)
[2017-06-26] MEDS ORDERED: TETANUS,DIPTH,PERTUSS P/F (BOOSTRIX) 0.5 ML VIAL IM ONE (15:15)
[2017-06-26] MEDS ORDERED: WITCH HAZEL(TUCKS) 40 EA JAR TOP PRN (15:15)
[2017-06-26] MEDS ORDERED: BENZOCAINE/MENTHOL (DERMOPLAST) 56 ML CAN TP PRN (15:15)
[2017-06-26] MEDS: IBUPROFEN 600 MG (MOTRIN) TAB PO SCH ×2 (15:28→21:02)
[2017-06-26] MEDS: DOCUSATE SODIUM 100 MG (COLACE) CAP PO SCH (21:01)
[2017-06-26] MEDS ORDERED: LIDOCAINE/EPI 2% 1:100,00 (XYLOCAINE) 20 ML VIAL INJ ONE (21:15)
[2017-06-26] MEDS ORDERED: CATHETER FLUSH 10 ML SYR IV SCH (22:00)
[2017-06-27 02:20] VITALS: BP 94/62
[2017-06-27] MEDS ORDERED: HYDROcodone/APAP 5 MG/325 MG (LORTAB) TAB PO ONE (02:45)
[2017-06-27] MEDS: IBUPROFEN 600 MG (MOTRIN) TAB PO SCH ×3 (02:58→15:50)
[2017-06-27] MEDS ORDERED: PRENATAL VITAMIN 1 EA TAB PO SCH (07:00)
[2017-06-27 07:02] LABS: BASOPHILS % (AUTO) 0 % (0-10); EOSINOPHILS # (AUTO) 0.2 10^3/uL (0.0-0.3); EOSINOPHILS % (AUTO) 2 % (0-10); LYMPHOCYTES # (AUTO) 2.3 X 10^3 (1.0-4.0); LYMPHOCYTES % (AUTO) 21 % (12-44); MEAN CORPUSCULAR HEMOGLOBIN 26 PG (25-34); MEAN CORPUSCULAR HGB CONC 32 G/DL (32-36); MEAN CORPUSCULAR VOLUME 81 FL (80-99); MEAN PLATELET VOLUME 10.8 FL (7.4-10.4); MONOCYTES % (AUTO) 9 % (0-12); NEUTROPHILS # (AUTO) 7.8 X 10^3 (1.8-7.8); NEUTROPHILS % (AUTO) 69 % (42-75); PLATELET COUNT 208 10^3/uL (130-400); RED BLOOD COUNT 4.05 10^6/uL (4.35-5.85); RED CELL DISTRIBUTION WIDTH 15.1 % (10.0-14.5); WHITE BLOOD COUNT 11.3 10^3/uL (4.3-11.0)
[2017-06-27 09:18] VITALS: BP 98/62
[2017-06-27] MEDS: DOCUSATE SODIUM 100 MG (COLACE) CAP PO SCH (09:29)
[2017-06-27] MEDS ORDERED: IBUP-1773 PO (12:24)
--- NOTE | 2017-06-27 12:28 | Discharge Instructions ---
Discharge Inst-Women's Serv Depart Medications New, Converted or Re-Newed RX: Other (Over the counter) New Medications: Ibuprofen (Ibuprofen) 600 Mg Tablet 600 MG PO Q6H PRN for CRAMPS, #90 TAB 0 Refills Discontinued Medications: Acyclovir (Acyclovir) 400 Mg Tablet MG PO TID, TAB Glyburide (Glyburide) 2.5 Mg Tablet 2.5 MG PO DAILY, TAB Follow Up/Instructions Goal/Follow Up: Follow-up with Dr. Olsen in 6 weeks Will need BS follow-up/glucose tolerance test at 6 weeks Activity Activity: Activity as Tolerated Driving Instructions: You May Drive Nothing Inside Vagina: No Douching, No [place], No Tampons Diet Discharge Diet: No Restrictions Symptoms to Report to : Bleeding Excessive, Pain Increased, Fever Over 101 Degrees F, Vaginal Bleeding Increase, Vaginal Discharge Foul, Shortness of Breath For Any Problems or Questions: Contact Your Physician Copies To 1: KERRY OLSEN MD, LINDA K DO Jun 27, 2017 12:28
--- NOTE | 2017-06-27 12:32 | Discharge Summary ---
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 Discharge Physical Examination Allergies: Coded Allergies: No Known Drug Allergies (Unverified , 07/06/11) Vitals & I&Os Intake and Output 06/27/17 00:00 Intake Total 1800 ml Balance 1800 ml Vital Sign - Last 12Hours Date Time Temp Pulse Resp B/P (MAP) Pulse Ox O2 Delivery O2 Flow Rate FiO2 06/27/17 09:18 98.1 93 18 98/62 (74) 99 Room Air General Appearance: Alert Abdominal: Other (uterus firm, at the umbilicus) Psych/Mental Status: Mood NL Hospital Course Routine post- course Labs Laboratory Tests 06/27/17 06:10: White Blood Count 11.3H, Red Blood Count 4.05L, Hemoglobin 10.5L, Hematocrit 33L , Mean Corpuscular Volume 81, Mean Corpuscular Hemoglobin 26, Mean Corpuscular Hemoglobin Concent 32, Red Cell Distribution Width 15.1H, Platelet Count 208, Mean Platelet Volume 10.8H, Neutrophils (%) (Auto) 69, Lymphocytes (%) (Auto) 21 , Monocytes (%) (Auto) 9, Eosinophils (%) (Auto) 2, Basophils (%) (Auto) 0, Neutrophils # (Auto) 7.8, Lymphocytes # (Auto) 2.3, Monocytes # (Auto) 1.0, Eosinophils # (Auto) 0.2, Basophils # (Auto) 0.0 Discharge Instructions to patient/family Please see electronic discharge instructions given to patient. Discharge Medications Reviewed and agree with Discharge Medication list on patient's Discharge Instruction sheet Clinical Quality Measures DVT/VTE Risk/Contraindication: Risk Factor Score Per Nursin RFS Level Per Nursing on Admit: 1=Low/No VTE PPX Copy Copies To 1: SCOTT,KERRYKOMAL RHOADES MD, DO Jun 27, 2017 12:32
[2017-06-27 14:17] VITALS: BP 85/54
[2017-06-27 16:08] VITALS: BP 102/70
--- NOTE | 2017-06-27 16:30 | Anesthesia-Regional Post-Op ---
Regional Patient Condition Mental Status: Alert, Oriented x3 Circulation: Same as Pre-Op Headache: Absent Sensation: Full Recovery Motor Block: Absent Post Op Complications Complications Patient has some swelling in coccyx and some numbness in right lateral thigh. This is not causing any problems walking. Patient states that she has experienced this in the past with other deliveries. Follow Up Care/Instructions Patient Instructions Instructed patient that the swelling and numbness in thigh should get better and resolve. Patient is being discharged. Instructed patient if numbness gets worse or effects walking to call OB and have them contact myself. Will follow up by phone on Thursday to check progress of both. MARISSA CHRISTINE CRNA Jun 27, 2017 16:30
== END 2017-06-27 17:15 | disposition home or self-care (01) | DRG 774 ==
LOC: LDRP 17:17
PROVIDERS: ADMIT Family Medicine; ATTEND Family Medicine
PROC: 3E033VJ Introduction of Other Hormone into Peripheral Vein, Percutaneous Approach (ICD-10-PCS; 2017-06-25)
PROC: 10E0XZZ Delivery of Products of Conception, External Approach (ICD-10-PCS; principal; 2017-06-26)
PROC: 0KQM0ZZ Repair Perineum Muscle, Open Approach (ICD-10-PCS; 2017-06-26)
DX: O24.420 Gestational diabetes mellitus in childbirth, diet controlled (principal); O41.03X0 Oligohydramnios, third trimester, not applicable or unspecified; O70.1 Second degree perineal laceration during delivery; O98.33 Other infections with a predominantly sexual mode of transmission complicating the puerperium; Z37.0 Single live birth; Z3A.37 37 weeks gestation of pregnancy
CPT/HCPCS: 36415; 82962; 83033; 85025; 86850; 86900; 86901

== ENCOUNTER → 2017-06-25 | Outpatient (CLI) | payer MEDICAID ==
[~2017-06-25] MED LIST changes: +ACYC400T PO; +GLYB2.5T4 PO
--- NOTE | 2017-06-25 18:35 | Diagnostic Imaging Report ---
EXAMINATION: OB ultrasound. Biophysical profile. INDICATION: Gestational diabetes. FINDINGS: The electroencephalograph technologist reports seeing normal cardiac activity subjectively. An actual measurement of the heart rate, however, was not obtained and submitted with this scan. position is cephalic. Biophysical profile criteria are all met. Total score is 8/8. Total TRUE is 5.7. IMPRESSION: 1. Borderline oligohydramnios. 2. Total biophysical profile score is 8/8. The findings were called to Carol, the nurse taking care of the patient, at 11:15 a.m. by the electroencephalograph technologist who performed the exam. Dictated by: Dictated on workstation # [id number]
== END ==
LOC: RAD 10:41
PROVIDERS: ATTEND Family Medicine
DX: O41.03X0 Oligohydramnios, third trimester, not applicable or unspecified (principal); O24.419 Gestational diabetes mellitus in pregnancy, unspecified control; Z3A.00 Weeks of gestation of pregnancy not specified
CPT/HCPCS: 76819